=== PATIENT | female | born 1945 | race Caucasian/White ===

== ENCOUNTER → 2016-08-17 | Outpatient (CLI) | payer MEDICARE ==
[~2016-08-17] MED LIST: CARV12.52 PO; CHOL1TAB16 PO; GLIM1TAB PO; GLIM2TAB PO; LISI-357 PO; LISI-519 PO; METF-324 PO; METF500 PO; METF500T PO; MIRA0.25 PO; POTA595T PO; POTASSIUM PO; PRAM0.25 PO; PRAV10TA PO; VITATAB43 PO; XARE15TA PO; XARE20TA PO; [UNRECOGNIZED DRUG - CODE] PO
[2016-08-17 12:32] LABS: AUTOMATED NEUTROPHIL # 4.1 TH/MM3 (1.8-7.7); BASOPHIL # 0.1 TH/MM3 (0-0.2); BASOPHIL % 1.1 % (0.0-2.0); EOSINOPHIL # 0.1 TH/MM3 (0-0.4); EOSINOPHIL % 2.2 % (0.0-4.0); HEMATOCRIT 40.7 % (35.0-46.0); HEMO FLAGS DIFF FINAL; LYMPH % 30.7 % (9.0-44.0); LYMPHOCYTE # 2.1 TH/MM3 (1.0-4.8); MEAN CELL VOLUME 91.7 FL (80.0-100.0); MEAN CORPUSCULAR HGB CONC 33.7 % (32.0-36.0); MONO % 6.4 % (0.0-8.0); NEUT % 59.6 % (16.0-70.0); PLATELET COUNT 164 TH/MM3 (150-450); RED BLOOD COUNT 4.43 MIL/MM3 (4.00-5.30); RED CELL DISTRIBUTION WIDTH 13.1 % (11.6-17.2); WHITE BLOOD COUNT 6.8 TH/MM3 (4.0-11.0)
[2016-08-17 12:57] LABS: ANION GAP 9 MEQ/L (5-15); BICARBONATE 26.2 MEQ/L (21.0-32.0); BLOOD UREA NITROGEN 11 MG/DL (7-18); CHLORIDE 105 MEQ/L (98-107); GLOMERULAR FILTRATION RATE 96 ML/MIN (>89); GLUCOSE,FASTING 151 MG/DL (74-99); POTASSIUM 3.7 MEQ/L (3.5-5.1); SODIUM (NA) 140 MEQ/L (136-145)
[2016-08-17 14:12] LABS: ALKALINE PHOSPHATASE 89 U/L (45-117); ALT (GPT) 20 U/L (10-53); AST (GOT) 9 U/L (15-37); FREE T4 1.01 NG/DL (0.76-1.46); HDL CHOLESTEROL 60.9 MG/DL (40.0-60.0); LDL CHOLESTEROL 110 MG/DL (0-99); TOTAL BILIRUBIN ADULT 0.7 MG/DL (0.2-1.0)
== END ==
LOC: CLAB 12:05
PROVIDERS: ATTEND Family Medicine
DX: I10 Essential (primary) hypertension (principal); E11.65 Type 2 diabetes mellitus with hyperglycemia; R25.1 Tremor, unspecified; R41.3 Other amnesia; E55.9 Vitamin D deficiency, unspecified; R26.89 Other abnormalities of gait and mobility; F43.21 Adjustment disorder with depressed mood
CPT/HCPCS: 36415; 80053; 80061; 82306; 82607; 84439; 84443; 85025

== ENCOUNTER → 2016-11-03 | Outpatient (CLI) | payer MEDICARE ==
[2016-11-03 10:35] LABS: HEMATOCRIT 41.4 % (35.0-46.0); MEAN CELL VOLUME 92.3 FL (80.0-100.0); MEAN CORPUSCULAR HEMOGLOBIN 30.3 PG (27.0-34.0); MEAN CORPUSCULAR HGB CONC 32.8 % (32.0-36.0); PLATELET COUNT 149 TH/MM3 (150-450); RED BLOOD COUNT 4.48 MIL/MM3 (4.00-5.30); RED CELL DISTRIBUTION WIDTH 13.5 % (11.6-17.2); REVIEW FLAG FINAL; WHITE BLOOD COUNT 5.7 TH/MM3 (4.0-11.0)
[2016-11-03 10:50] LABS: ALT (GPT) 21 U/L (10-53); ANION GAP 6 MEQ/L (5-15); AST (GOT) 13 U/L (15-37); BICARBONATE 27.3 MEQ/L (21.0-32.0); BLOOD UREA NITROGEN 11 MG/DL (7-18); CHLORIDE 107 MEQ/L (98-107); GLOMERULAR FILTRATION RATE 86 ML/MIN (>89); GLUCOSE,FASTING 190 MG/DL (74-99); POTASSIUM 4.4 MEQ/L (3.5-5.1); SODIUM (NA) 140 MEQ/L (136-145)
[2016-11-03 10:59] LABS: ALKALINE PHOSPHATASE 85 U/L (45-117); HDL CHOLESTEROL 53.8 MG/DL (40.0-60.0); LDL CHOLESTEROL 91 MG/DL (0-99); TOTAL BILIRUBIN ADULT 0.6 MG/DL (0.2-1.0)
== END ==
LOC: CLAB 10:14
PROVIDERS: ATTEND Internal Medicine Interventional Cardiology
DX: I11.9 Hypertensive heart disease without heart failure (principal); R07.89 Other chest pain; E11.9 Type 2 diabetes mellitus without complications; R06.02 Shortness of breath; R53.81 Other malaise; I50.9 Heart failure, unspecified; E78.00 Pure hypercholesterolemia, unspecified
CPT/HCPCS: 36415; 80053; 80061; 83880; 84443; 85027

== ENCOUNTER 2016-12-11 10:32 | Inpatient (IN) | payer MEDICARE, MEDICAID ==
[2016-12-11] VITALS (14 sets, daily range): BP systolic 104–132; BP diastolic 56–97; PULSE 67–100; RESP 16–20; TEMP 98.3–98.7; O2SAT 91–97
[~2016-12-11] VITALS: Ht 167.6 cm; Wt 82.8 kg
[~2016-12-11 10:32] MED LIST changes: -CHOL1TAB16 PO; -GLIM2TAB PO; -LISI-519 PO; -METF500T PO; -MIRA0.25 PO; -POTA595T PO; -POTASSIUM PO; -PRAM0.25 PO; -PRAV10TA PO; -VITATAB43 PO; -XARE15TA PO; -XARE20TA PO; -[UNRECOGNIZED DRUG - CODE] PO
[2016-12-11] MEDS ORDERED: PRAV10TA PO (10:59)
[2016-12-11] MEDS ORDERED: CHOL1TAB16 PO (10:59)
[2016-12-11] MEDS ORDERED: POTASSIUM PO (10:59)
[2016-12-11] MEDS ORDERED: METF500T PO ×2 (10:59)
[2016-12-11] MEDS ORDERED: LISI-519 PO (10:59)
[2016-12-11] MEDS ORDERED: GLIM2TAB PO (10:59)
[2016-12-11] MEDS ORDERED: CARV12.52 PO (10:59)
[2016-12-11] MEDS ORDERED: PRAM0.25 PO (10:59)
[2016-12-11] MEDS ORDERED: VITATAB43 PO (10:59)
[2016-12-11] MEDS ORDERED: [UNRECOGNIZED DRUG - CODE] PO (10:59)
[2016-12-11 11:01] LABS: BLOOD, URINE NEG (NEG); KETONE, URINE 15 mg/dL (NEG); NITRITE,URINE NEG (NEG)
[2016-12-11 11:02] LABS: GLUCOSE,URINE 1000 OR GREATER mg/dL (NEG); METHOD OF COLLECTION CLEAN CATCH; URINE COLOR YELLOW (YELLW/STRAW)
[2016-12-11 11:06] LABS: COMMENT (UR) CULT NOT INDICATED; CULTURE IF INDICATED CULT NOT INDICATED; SQUAMOUS EPITHELIAL CELL URINE 0-5 /hpf (0-5); TRANSITIONAL EPI CELLS, URINE 0-5 /hpf; WBC, URINE 0-2 /hpf (0-5)
[2016-12-11] MEDS ORDERED: SODIUM CHLOR 0.9% 1000 ML INJ 1,000 ML IV ONE (11:09)
[2016-12-11] MEDS ORDERED: SODIUM CHLORIDE 0.9% FLUSH 10 ML FLUSH IVF PRN (11:15)
[2016-12-11 11:25] LABS: AUTOMATED NEUTROPHIL # 5.9 TH/MM3 (1.8-7.7); BASOPHIL # 0.1 TH/MM3 (0-0.2); BASOPHIL % 1.5 % (0.0-2.0); EOSINOPHIL # 0.1 TH/MM3 (0-0.4); EOSINOPHIL % 1.1 % (0.0-4.0); HEMATOCRIT 37.9 % (35.0-46.0); HEMO FLAGS DIFF FINAL; LYMPH % 26.6 % (9.0-44.0); LYMPHOCYTE # 2.4 TH/MM3 (1.0-4.8); MEAN CORPUSCULAR HEMOGLOBIN 30.3 PG (27.0-34.0); MEAN CORPUSCULAR HGB CONC 33.6 % (32.0-36.0); NEUT % 65.8 % (16.0-70.0); PLATELET COUNT 193 TH/MM3 (150-450); RED BLOOD COUNT 4.22 MIL/MM3 (4.00-5.30); RED CELL DISTRIBUTION WIDTH 12.3 % (11.6-17.2); WHITE BLOOD COUNT 8.9 TH/MM3 (4.0-11.0)
[2016-12-11 11:33] LABS: CHLORIDE 103 MEQ/L (98-107); POTASSIUM 4.1 MEQ/L (3.5-5.1); SODIUM (NA) 142 MEQ/L (136-145)
[2016-12-11 11:36] LABS: ANION GAP 15 MEQ/L (5-15); BICARBONATE 24.3 MEQ/L (21.0-32.0); BLOOD UREA NITROGEN 20 MG/DL (7-18); MAGNESIUM 1.5 MG/DL (1.5-2.5)
[2016-12-11 11:39] LABS: ALT (GPT) 21 U/L (10-53); AST (GOT) 13 U/L (15-37)
[2016-12-11 11:40] LABS: GLOMERULAR FILTRATION RATE 66 ML/MIN (>89)
[2016-12-11 11:41] LABS: TOTAL BILIRUBIN ADULT 0.6 MG/DL (0.2-1.0)
[2016-12-11 11:42] LABS: ALKALINE PHOSPHATASE 93 U/L (45-117)
[2016-12-11 11:45] LABS: CREATINE KINASE 39 U/L (26-192)
[2016-12-11] MEDS ORDERED: ONDANSETRON HCL 4 MG/2 ML VIAL IVP ONE (11:45)
[2016-12-11] MEDS ORDERED: LIDOCAINE VISCOUS 2% SOLN 15 ML UDC PO ONE (11:45)
[2016-12-11] MEDS ORDERED: DICYCLOMINE HCL 20 MG/2 ML VIAL IM ONE (11:45)
[2016-12-11] MEDS ORDERED: ALUMINUM/MAGNESIUM/SIMETH 30 ML CUP PO ONE (11:45)
--- NOTE | 2016-12-11 11:55 | PD ---
HPI Chief Complaint: Abdominal Pain Time Seen by Provider: 11:00 Travel History International Travel<30 days: No Contact w/Intl Traveler<30days: No Traveled to known affect area: No History of Present Illness HPI 71-year-old female arrives to the ER with a few complaints. She has felt total body pain for about a year or so. She felt dizzy at [facility] today. She did not lose consciousness or fall. She has had nausea and vomiting according to the triage nurse records although she does not mention it to me. She also notes abdominal pain to the triage nurse however does not report same to me. She's had no fever. Appetite has been normal. No chest pain or shortness of breath reported. The dizziness sensation she described as right headedness in nature. PFSH Past Medical History Hx Anticoagulant Therapy: No Arthritis: Yes (RA) Asthma: No Autoimmune Disease: No Blood Disorders: No Anxiety: Yes Depression: Yes Heart Rhythm Problems: No Cancer: No Cardiovascular Problems: Yes High Cholesterol: No Chemotherapy: No Chest Pain: No Congestive Heart Failure: No COPD: No Cerebrovascular Accident: No Diabetes: Yes Patient Takes Glucophage: Yes Diminished Hearing: No Endocrine: Yes GERD: Yes Genitourinary: No Headaches: Yes (MIGRAINES) Hepatitis: No Hiatal Hernia: No Hypertension: Yes Immune Disorder: No Implanted Vascular Access Dvce: No Medical other: No Musculoskeletal: Yes (RA, OSTEO) Neurologic: Yes (PARKINSON'S) Parkinson's Disease: Yes Psychiatric: Yes Reproductive: No Respiratory: No Myocardial Infarction: No Pneumonia: Yes ( A CHILD) Radiation Therapy: No Sleep Apnea: Yes Thyroid Disease: No Tetanus Vaccination: Unknown ?: Not Menopausal: Yes : 7 Para: 5 Miscarriage: 2 Tubal Ligation: Yes (25 YRS AGO) Past Surgical History Abdominal Surgery: No AICD: No Body Medical Devices: N/A Cardiac Surgery: No Ear Surgery: No Endocrine Surgery: No Eye Surgery: No Genitourinary Surgery: No Gynecologic Surgery: Yes (TUBAL LIGATION) Hysterectomy: No Joint Replacement: No Neurologic Surgery: No Oral Surgery: No Pacemaker: No Tonsillectomy: Yes ( CHILD) Other Surgery: Yes (BREAST REDUCTION 2003) Social History Alcohol Use: No Tobacco Use: No Substance Use: No Allergies-Medications (Allergen,Severity, Reaction): Coded Allergies: Penicillin (Verified Allergy, Intermediate, RASH, 12/11/16) Reported Meds & Prescriptions Reported Meds & Active Scripts Active Reported [Potassium] 595 Mg PO DAILY Vitamin [id number] Acid (Cobalamine Combinations) 500-400 Mcg Tab 1 Tab PO DAILY Vitamin D3 (Cholecalciferol) 50,000 Unit Tab 10,000 Units PO DAILY NEB Etodolac 300 Mg Cap 300 Mg PO TID Takr with food. Pravastatin 10 Mg Tab 10 Mg PO DAILY Carvedilol 12.5 Mg Tab 12.5 Mg PO BID Lisinopril 5 Mg Tab 5 Mg PO DAILY Glimepiride 2 Mg Tab 2 Mg PO BIDAC Metformin (Metformin HCl) 500 Mg Tab 1,500 Mg PO HS With meals Metformin (Metformin HCl) 500 Mg Tab 1,000 Mg PO AM With meals Pramipexole (Pramipexole Dihydrochloride) 0.25 Mg Tab 0.25 Mg PO TID Review of Systems Except as stated in HPI: all other systems reviewed are Neg General / Constitutional: No: Fever, Chills Physical Exam Narrative GENERAL: 71-year-old female pleasant well-nourished well-developed SKIN: Focused skin assessment warm/dry. HEAD: Atraumatic. Normocephalic. EYES: Pupils equal and round. No scleral icterus. No injection or drainage. ENT: No nasal bleeding or discharge. Mucous membranes pink and moist. NECK: Trachea midline. No JVD. CARDIOVASCULAR: Regular rate and rhythm. No murmur appreciated. RESPIRATORY: No accessory muscle use. Clear to auscultation. Breath sounds equal bilaterally. GASTROINTESTINAL: Soft. Minimal suprapubic tenderness. MUSCULOSKELETAL: No obvious deformities. No clubbing. No cyanosis. No evidence DVT. NEUROLOGICAL: Awake and alert. No obvious cranial nerve deficits. Motor grossly within normal limits. Normal speech. PSYCHIATRIC: Appropriate mood and affect; insight and judgment normal. Data Data Last Documented VS Vital Signs Date Time Temp Pulse Resp B/P Pulse Ox O2 Delivery O2 Flow Rate FiO2 12/11/16 12:57 83 16 130/59 96 Room Air 12/11/16 10:35 98.7 VS reviewed Orders Urinalysis - C+S If Indicated (12/11/16 10:36) Electrocardiogram (12/11/16 11:09) Complete Blood Count With Diff (12/11/16 11:09) Comprehensive Metabolic Panel (12/11/16 11:09) Magnesium (Mg) (12/11/16 11:09) Ckmb (Isoenzyme) Profile (12/11/16 11:09) Troponin I (12/11/16 11:09) Ecg Monitoring (12/11/16 11:09) Iv Access Insert/Monitor (12/11/16 11:09) Oximetry (12/11/16 11:09) Sodium Chloride 0.9% Flush (Ns Flush) (12/11/16 11:15) Sodium Chlor 0.9% 1000 Ml Inj (Ns 1000 M (12/11/16 11:09) Orthostatic Vital Signs (12/11/16 11:09) Ondansetron Inj (Zofran Inj) (12/11/16 11:45) Dicyclomine Inj (Bentyl Inj) (12/11/16 11:45) Al-Mag Hy-Si 40-40-4 Mg/Ml Liq (Mag-Al P (12/11/16 11:45) Lidocaine 2% Viscous (Xylocaine 2% Visco (12/11/16 11:45) Ct Abd/Pel W Iv Contrast(Rout) (12/11/16 11:37) Lipase (12/11/16 11:10) Iohexol 350 Inj (Omnipaque 350 Inj) (12/11/16 12:09) Us Leg Venous Doppler Bilat (12/11/16 ) Carvedilol (Coreg) (12/11/16 21:00) Lisinopril (Prinivil) (12/12/16 09:00) Pramipexole (Mirapex) (12/11/16 18:00) Pravastatin (Pravachol) (12/12/16 09:00) Heparin Infusion LINSEY.Q1H (12/11/16 13:54) Heparin Inj (Heparin Inj) (12/11/16 20:00) Heparin Inj (Heparin Inj) (12/11/16 20:00) Heparin-D5w Inj (Heparin-D5w Inj) (12/11/16 14:00) Act Partial Throm Time (Ptt) (12/11/16 13:54) Prothrombin Time / Inr (Pt) (12/11/16 13:54) Admit Order (Ed Use Only) (12/11/16 13:55) Labs Laboratory Tests Test 12/11/16 12/11/16 10:45 11:10 Urine Collection Type CLEAN CATCH Urine Color YELLOW Urine Turbidity SLIGHT Urine pH 5.0 Urine Specific [place] 1.034 Urine Protein NEG mg/dL Urine Glucose (UA) 1000 OR GREATER mg/dL Urine Ketones 15 mg/dL Urine Occult Blood NEG Urine Nitrite NEG Urine Bilirubin NEG Urine Leukocyte Esterase NEG Urine WBC 0-2 /hpf Urine Squamous Epithelial 0-5 /hpf Cells Urine Transitional Epithelial 0-5 /hpf Cells Urine Amorphous Sediment FEW Microscopic Urinalysis Comment CULT NOT INDICATED Urine Collection Time 1045 White Blood Count 8.9 TH/MM3 Red Blood Count 4.22 MIL/MM3 Hemoglobin 12.8 GM/DL Hematocrit 37.9 % Mean Corpuscular Volume 90.0 FL Mean Corpuscular Hemoglobin 30.3 PG Mean Corpuscular Hemoglobin 33.6 % Concent Red Cell Distribution Width 12.3 % Platelet Count 193 TH/MM3 Mean Platelet Volume 10.8 FL Neutrophils (%) (Auto) 65.8 % Lymphocytes (%) (Auto) 26.6 % Monocytes (%) (Auto) 5.0 % Eosinophils (%) (Auto) 1.1 % Basophils (%) (Auto) 1.5 % Neutrophils # (Auto) 5.9 TH/MM3 Lymphocytes # (Auto) 2.4 TH/MM3 Monocytes # (Auto) 0.4 TH/MM3 Eosinophils # (Auto) 0.1 TH/MM3 Basophils # (Auto) 0.1 TH/MM3 CBC Comment DIFF FINAL Differential Comment Prothrombin Time 10.7 SEC Prothromb Time International 1.0 RATIO Ratio Activated Partial 23.6 SEC Thromboplast Time Sodium Level 142 MEQ/L Potassium Level 4.1 MEQ/L Chloride Level 103 MEQ/L Carbon Dioxide Level 24.3 MEQ/L Anion Gap 15 MEQ/L Blood Urea Nitrogen 20 MG/DL Creatinine 0.85 MG/DL Estimat Glomerular Filtration 66 ML/MIN Rate Random Glucose 277 MG/DL Calcium Level 9.5 MG/DL Magnesium Level 1.5 MG/DL Total Bilirubin 0.6 MG/DL Aspartate Amino Transf 13 U/L (AST/SGOT) Alanine Aminotransferase 21 U/L (ALT/SGPT) Alkaline Phosphatase 93 U/L Total Creatine Kinase 39 U/L Troponin I LESS THAN 0.02 NG/ML Total Protein 6.9 GM/DL Albumin 3.5 GM/DL Lipase 126 U/L MDM Medical Decision Making Medical Screen Exam Complete: Yes Emergency Medical Condition: Yes Medical Record Reviewed: Yes Differential Diagnosis Dehydration, PE, DVT, anemia, electrolyte imbalance, arrhythmia Narrative Course CBC & BMP Diagram 12/11/16 11:10 LFTs normal Tn < 0.02 Lipase 126 UA: No UTI EKG: Sinus, normal axis, intervals, rate 90 Last 24 hours Impressions Lung Scan-VQ Nuclear Medicine 12/11/16 1305 Signed Impressions: Service Date/Time: Sunday, December 11, 2016 16:28 - CONCLUSION: Normal examination. Sarwat Carter MD Abdomen/Pelvis CT 12/11/16 1137 Signed Impressions: Service Date/Time: Sunday, December 11, 2016 11:57 - CONCLUSION: 1. Elongated filling defect of the left common iliac artery indicating deep vein thrombosis. 2. Hepatic steatosis. 3. Renal cysts. Jair Garcia MD Lower Extremity Ultrasound 12/11/16 0000 Signed Impressions: Service Date/Time: Sunday, December 11, 2016 13:58 - CONCLUSION: No evidence of lower extremity DVT on the right or left. Jair Garcia MD Chest X-Ray 12/11/16 0000 Signed Impressions: Service Date/Time: Sunday, December 11, 2016 14:32 - CONCLUSION: Slight right mid lung linear atelectasis. Sarwat Carter MD Patient presumably has deep vein thrombosis based on CT imaging involving the left common iliac artery. Heparin started. Case discussed with Dr. Castro. Diagnosis Primary Impression: Dizziness Additional Impression: DVT (deep venous thrombosis) Qualified Code: I82.90 - Deep vein thrombosis (DVT) of non-extremity vein, unspecified chronicity Admitting Information Admitting Physician Requests: Observation Rufus Marie MD Dec 11, 2016 11:55
[2016-12-11] MEDS ORDERED: IOHEXOL 350 MG/ML 10 ML VIAL (for RAD DIAG) IV ONE (12:09)
--- NOTE | 2016-12-11 13:06 | RADHPO ---
EXAM DATE/TIME: 12/11/2016 11:57 [facility] COMPARISON: No previous studies available for comparison. INDICATIONS : Upper abdominal pain. IV CONTRAST: 85 cc Omnipaque 350 (iohexol) IV ORAL CONTRAST: No oral contrast ingested. RADIATION DOSE: 19.29 CTDIvol (mGy) MEDICAL HISTORY : Hypertension. Gastroesophageal reflux disease. Diabetes SURGICAL HISTORY : Tubal ligation. ENCOUNTER: Initial ACUITY: 2 weeks PAIN SCALE: 5/10 LOCATION: Bilateral upper quadrant TECHNIQUE: Volumetric scanning of the abdomen and pelvis was performed. Using automated exposure control and ad justment of the mA and/or kV according to patient size, radiation dose was kept as low as reasonably achievable to obtain optimal diagnostic quality images. FINDINGS: LOWER LUNGS: The visualized lower lungs are clear. LIVER: Diffuse hypodensity of the liver indicating hepatic steatosis. No mass identified. Gallbladder within normal limits. SPLEEN: Normal size without lesion. PANCREAS: Within normal limits. KIDNEYS: 1.8 cm right midpole renal cyst. 1 cm left upper pole renal cyst. No evidence of hydronephrosis. ADRENAL GLANDS: Within normal limits. VASCULAR: Filling defect in the proximal left common iliac vein indicating deep vein thrombosis. There is no ao rtic aneurysm. BOWEL/MESENTERY: No evidence of bowel dilatation. No free air or free fluid. Appendix within normal limits. ABDOMINAL WALL: Within normal limits. RETROPERITONEUM: There is no lymphadenopathy. BLADDER: No wall thickening or mass. REPRODUCTIVE: Within normal limits. INGUINAL: There is no lymphadenopathy or hernia. MUSCULOSKELETAL: Within normal limits for patient age. CONCLUSION: 1. Elongated filling defect of the left common iliac artery indicating deep vein thrombosis. 2. Hepatic steatosis. 3. Renal cysts. Jair Garcia MD on December 11, 2016 at 12:54 Board Certified Radiologist. This report was verified electronically.
[2016-12-11] MEDS ORDERED: HEPARIN-D5W INJ 250 ML IV SCH (14:00)
[2016-12-11] MEDS ORDERED: SODIUM CHLOR 0.9% 1000 ML INJ 1,000 ML IV SCH (14:08)
[2016-12-11] MEDS ORDERED: NALOXONE HCL 0.4 MG/ML AMP IV PRN (14:15)
[2016-12-11] MEDS ORDERED: ACETAMINOPHEN 325 MG TAB PO PRN ×2 (14:15)
[2016-12-11] MEDS ORDERED: SENNOSIDES 8.6 MG TAB PO PRN (14:15)
[2016-12-11] MEDS: DOCUSATE SODIUM 100 MG CAP PO SCH (14:15)
[2016-12-11] MEDS ORDERED: SODIUM CHLORIDE 0.9% FLUSH 10 ML FLUSH IV FLUSH PRN (14:15)
--- NOTE | 2016-12-11 14:17 | HHI.HP ---
[facility] Service [facility] Primary Care Physician Jorge Hutchinson MD Admission Diagnosis Near Syncope, Poss DVT Diagnoses: Chief Complaint: Dizziness Travel History International Travel<30 Days: No Contact w/Intl Traveler <30 Da: No Traveled to Known Affected Are: No History of Present Illness The patient is a 71-year-old female who is diagnosed with Parkinson's disease last year who is presenting to the hospital with dizziness. The patient said she went to [facility] this morning and about 15 minutes in she developed lightheadedness and nausea. She denied chest pain or shortness of breath. She says she felt hot/flushed while this was happening. She says she never sweats. She endorsed a minor headache. She says she gets these sort of spells every once in a while. The patient also complains of chronic body pains. She believes a lot of her symptoms including her body pains and her lightheadedness are related to her medications. She says she has been having a hard time sleeping secondary to generalized pain. She says if she moves a little bit in bed she will get significant pain sometimes. She says she tries not to take her Parkinson's medications prior to leaving the house sometimes because she knows it can predispose her to lightheadedness. She did not take it this morning before going to [facility]. Review of Systems Except as stated in HPI: all other systems reviewed are Neg Past Family Social History Past Medical History Parkinson's disease Hypertension Diabetes mellitus type 2 Anxiety/depression Dyslipidemia Rheumatoid arthritis Basal cell carcinoma status post removal Past Surgical History Tubal ligation Breast reduction Tonsillectomy Allergies: Coded Allergies: Penicillin (Verified Allergy, Intermediate, RASH, 12/11/16) Active Ordered Medications Current Medications Medications (Trade) Dose Ordered Sig/Jennifer Route Start Time Stop Time Status Last Admin (NS Flush) 2 ml UNSCH PRN IVF 12/11/16 11:15 (Coreg) 12.5 mg BID PO 12/11/16 21:00 (Prinivil) 5 mg DAILY PO 12/12/16 09:00 (Mirapex) 0.25 mg TID PO 12/11/16 18:00 (Pravachol) 10 mg DAILY PO 12/12/16 09:00 (Heparin Inj) 5,000 units UNSCH PRN IV 12/11/16 20:00 Heparin Sodium (Porcine) 2500 units 2,500 units UNSCH PRN IV 12/11/16 20:00 Heparin Sodium/ Dextrose 250 ml @ 0 mls/hr TITRATE IV 12/11/16 14:00 (NS 1000 ml Inj) 1,000 ml @ 100 mls/hr Q10H IV 12/11/16 14:08 12/12/16 00:07 UNV (NS Flush) 2 ml UNSCH PRN IV FLUSH 12/11/16 14:15 UNV (NS Flush) 2 ml BID IV FLUSH 12/11/16 21:00 UNV (Tylenol) 650 mg Q4H PRN PO 12/11/16 14:15 UNV (Colace) 100 mg Q12H PO 12/11/16 14:15 UNV (Senokot) 17.2 mg Q12H PRN PO 12/11/16 14:15 UNV (Tylenol) 650 mg Q6H PRN PO 12/11/16 14:15 UNV (Roxicodone) 5 mg Q4H PRN PO 12/11/16 14:15 UNV (Narcan Inj) 0.4 mg UNSCH PRN IV 12/11/16 14:15 UNV Family History Diabetes Vaginal cancer Social History The patient does not smoke or drink. Physical Exam Vital Signs Vital Signs Date Time Temp Pulse Resp B/P Pulse Ox O2 Delivery O2 Flow Rate FiO2 12/11/16 12:57 83 16 130/59 96 Room Air 12/11/16 11:33 88 16 112/58 90 16 110/61 12/11/16 11:27 89 16 104/69 95 Room Air 12/11/16 11:20 16 97 Room Air 12/11/16 10:35 98.7 100 17 122/97 97 Physical Exam GENERAL: Well-nourished well-developed, NAD. SKIN: Focused skin assessment warm/dry. HEAD: Atraumatic. Normocephalic. EYES: Pupils equal and round. No scleral icterus. No injection or drainage. ENT: No nasal bleeding or discharge. Mucous membranes pink and moist. NECK: Trachea midline. No JVD. No carotid bruits noted. CARDIOVASCULAR: Regular rate and rhythm. No murmur appreciated. RESPIRATORY: No accessory muscle use. Clear to auscultation. Breath sounds equal bilaterally. GASTROINTESTINAL: + BS. Soft, nontender. No guarding or rebound. MUSCULOSKELETAL: No obvious deformities. No clubbing. No cyanosis. No edema. NEUROLOGICAL: Awake and alert. No obvious cranial nerve deficits. Motor grossly within normal limits. Normal speech. Extremities demonstrate rigidity. PSYCHIATRIC: Appropriate mood and affect; insight and judgment normal. Laboratory Laboratory Tests Test 12/11/16 12/11/16 10:45 11:10 Urine Collection Type CLEAN CATCH Urine Color YELLOW Urine Turbidity SLIGHT Urine pH 5.0 Urine Specific [place] 1.034 Urine Protein NEG Urine Glucose (UA) 1000 OR GREATER Urine Ketones 15 Urine Occult Blood NEG Urine Nitrite NEG Urine Bilirubin NEG Urine Leukocyte Esterase NEG Urine WBC 0-2 Urine Squamous Epithelial 0-5 Cells Urine Transitional Epithelial 0-5 Cells Urine Amorphous Sediment FEW Microscopic Urinalysis Comment CULT NOT INDICATED Urine Collection Time 1045 White Blood Count 8.9 Red Blood Count 4.22 Hemoglobin 12.8 Hematocrit 37.9 Mean Corpuscular Volume 90.0 Mean Corpuscular Hemoglobin 30.3 Mean Corpuscular Hemoglobin 33.6 Concent Red Cell Distribution Width 12.3 Platelet Count 193 Mean Platelet Volume 10.8 Neutrophils (%) (Auto) 65.8 Lymphocytes (%) (Auto) 26.6 Monocytes (%) (Auto) 5.0 Eosinophils (%) (Auto) 1.1 Basophils (%) (Auto) 1.5 Neutrophils # (Auto) 5.9 Lymphocytes # (Auto) 2.4 Monocytes # (Auto) 0.4 Eosinophils # (Auto) 0.1 Basophils # (Auto) 0.1 CBC Comment DIFF FINAL Differential Comment Sodium Level 142 Potassium Level 4.1 Chloride Level 103 Carbon Dioxide Level 24.3 Anion Gap 15 Blood Urea Nitrogen 20 Creatinine 0.85 Estimat Glomerular Filtration 66 Rate Random Glucose 277 Calcium Level 9.5 Magnesium Level 1.5 Total Bilirubin 0.6 Aspartate Amino Transf 13 (AST/SGOT) Alanine Aminotransferase 21 (ALT/SGPT) Alkaline Phosphatase 93 Total Creatine Kinase 39 Troponin I LESS THAN 0.02 Total Protein 6.9 Albumin 3.5 Lipase 126 Result Diagram: 12/11/16 1110 12/11/16 1110 Imaging Last Impressions Abdomen/Pelvis CT 4/30/17 1137 Signed Impressions: Service Date/Time: Sunday, December 11, 2016 11:57 - CONCLUSION: 1. Elongated filling defect of the left common iliac artery indicating deep vein thrombosis. 2. Hepatic steatosis. 3. Renal cysts. Jair Garcia MD Assessment and Plan Assessment and Plan Acute DVT CT of the abdomen showed: Elongated filling defect of the left common iliac artery indicating deep vein thrombosis. - Duplex US pending. - continue heparin gtt for now. Dizziness Likely s/t meds as the pt does endorse a temporal relationship to taking medications. Pt also with Parkinson's disease which leads to autonomic dysfunction. Not found to be orthostatic in the ED. - telemetry. - continue to monitor orthostatics. - resume pramipexole at a lower dose. - trend trops. - check a CXR. Parkinson's disease Diagnosed one year ago. Has rigidity and generally feels weak and tired. - continue home meds. - PT/ OT. - consider neurology consult. - decrease pramipexole as above. DM On metformin and glimepiride as an outpt. - hold home meds. - insulin sliding scale. - check a hemoglobin A1c. HTN Well controlled at this time. - follow orthostatics. - consider decreasing doses of home meds. PPx: Heparin gtt. Code Status Full. Discussed Condition With Dr. Marie, pt. Physician Certification 2 Midnight Certification Type: Admission for Inpatient Services Order for Inpatient Services The services are ordered in accordance with Medicare regulations or non- Medicare payer requirements, as applicable. In the case of services not specified as inpatient-only, they are appropriately provided as inpatient services in accordance with the 2-midnight benchmark. Estimated LOS (days): 2 days is the estimated time the patient will need to remain in the hospital, assuming treatment plan goals are met and no additional complications. Post-Hospital Plan: Home Rohith Castro DO Dec 11, 2016 14:17
[2016-12-11 14:18] LABS: APTT (PATIENT) 23.6 SEC (24.3-30.1); PROTHROMBIN TIME - PATIENT 10.7 SEC (9.8-11.6)
[2016-12-11] MEDS ORDERED: PILL SPLITTER OTHER PRN (15:00)
--- NOTE | 2016-12-11 15:03 | RADHPO ---
EXAM DATE/TIME: 12/11/2016 13:58 [facility] COMPARISON: No previous studies available for comparison. INDICATIONS : Bilateral leg swelling. Thrombosis seen on CT. MEDICAL HISTORY : Hypertension. Gastroesophageal reflux disease. Pneumonia. Sleep apnea. Dyspnea. Diabetes. Osteoarthr itis. IBS. Parkinson's. basal cell carcinoma. SURGICAL HISTORY : Tonsillectomy.Tubal ligation. Breast reduction. ENCOUNTER: Initial ACUITY: 1 day PAIN SCORE: 0/10 LOCATION: Bilateral legs. TECHNIQUE: Venous ultrasound of the left and right leg was performed from the inguinal ligament to the proximal calf. Real-time, color Doppler and spectral tracing, compression and augmentation techniques were us ed. FINDINGS: RIGHT LEG: There is normal compressibility of the deep venous system from the inguinal region to the proximal ca lf. No echogenic clot is seen in the lumen of the common femoral, femoral, popliteal, and posterior tibial veins. There is a normal response of the venous system to proximal and distal augmentation an d respiration. LEFT LEG: There is normal compressibility of the deep venous system from the inguinal region to the proximal ca lf. No echogenic clot is seen in the lumen of the common femoral, femoral, popliteal, and posterior tibial veins. There is a normal response of the venous system to proximal and distal augmentation an d respiration. CONCLUSION: No evidence of lower extremity DVT on the right or left. Jair Garcia MD on December 11, 2016 at 15:01 Board Certified Radiologist. This report was verified electronically.
--- NOTE | 2016-12-11 15:10 | RADHPO ---
EXAM DATE/TIME: 12/11/2016 14:32 [facility] COMPARISON: CHEST SINGLE AP, December 18, 2014, 11:18. INDICATIONS : Syncopal episode. Chest pain. MEDICAL HISTORY : Hypertension. SURGICAL HISTORY : None. ENCOUNTER: Initial ACUITY: 1 day PAIN SCORE: 1/10 LOCATION: Bilateral chest FINDINGS: The lungs are clear without infiltrate, nodule, or mass except for slight linear atelectasis in the r ight midlung. There is no appreciable pleural effusion for technique. Heart and mediastinum are unr emarkable. CONCLUSION: Slight right mid lung linear atelectasis. Sarwat Carter MD on December 11, 2016 at 15:07 Board Certified Radiologist. This report was verified electronically.
[2016-12-11] MEDS: PRAMIPEXOLE DIHYDROCHLORIDE 0.25 MG TAB PO SCH ×2 (15:38→18:32)
[2016-12-11] MEDS: INSULIN ASPART SUPPLEMENTAL SCALE SQ SCH ×2 (16:00→20:19)
[2016-12-11] MEDS ORDERED: METFORMIN HOLD POST IV CONTRAST SCH (16:00)
--- NOTE | 2016-12-11 17:22 | RADHPO ---
EXAM DATE/TIME: 12/11/2016 16:28 [facility] COMPARISON: CHEST SINGLE AP, December 11, 2016, 14:32. INDICATIONS : Shortness of breath for 1 day. DOSE: 8.1 mCi Tc99m MAA IV 1.6 mCi Tc99m DTPA aerosol MEDICAL HISTORY : Hypertension. Parkinsons. SURGICAL HISTORY : Tubal ligation. Breast reduction. ENCOUNTER: Initial ACUITY: 1 day PAIN SCALE: 0/10 LOCATION: Bilateral chest TECHNIQUE: Following five minutes of tidal breathing of DTPA aerosol, planar images of the lungs were performed in eight projections. The patient was then injected with MAA, and eight-view perfusion scan was perf ormed. FINDINGS: There is a homogeneous pattern of aerosol delivery to the periphery of both lungs. No focal ventilat ory defects are seen. The perfusion lung scan demonstrates a homogenous pattern of uptake in both lungs. No segmental or s ubsegmental defects are seen. CONCLUSION: Normal examination. Sarwat Carter MD on December 11, 2016 at 17:20 Board Certified Radiologist. This report was verified electronically.
[2016-12-11] MEDS ORDERED: PRAMIPEXOLE DIHYDROCHLORIDE 0.25 MG TAB PO SCH (18:00)
[2016-12-11] MEDS ORDERED: HEPARIN SODIUM - IV 10,000 UNITS/10 ML VIAL IV PRN ×2 (20:00)
[2016-12-11] MEDS: SODIUM CHLORIDE 0.9% FLUSH 10 ML FLUSH IV FLUSH SCH (20:10)
[2016-12-11] MEDS: CARVEDILOL 12.5 MG TAB PO SCH (20:10)
[2016-12-12] VITALS (18 sets, daily range): BP systolic 99–151; BP diastolic 48–97; PULSE 67–86; RESP 12–30; TEMP 97.9–98.4; O2SAT 96
[2016-12-12] MEDS: DOCUSATE SODIUM 100 MG CAP PO SCH ×2 (02:00→16:19)
[2016-12-12] MEDS: INSULIN ASPART SUPPLEMENTAL SCALE SQ SCH ×4 (06:51→21:05)
[2016-12-12] MEDS: PRAVASTATIN SOD 10 MG TAB PO SCH (08:57)
[2016-12-12] MEDS: SODIUM CHLORIDE 0.9% FLUSH 10 ML FLUSH IV FLUSH SCH ×2 (08:57→21:04)
[2016-12-12] MEDS: CARVEDILOL 12.5 MG TAB PO SCH ×3 (08:58→21:04)
[2016-12-12] MEDS: LISINOPRIL 5 MG TAB PO SCH ×2 (08:58→12:52)
[2016-12-12] MEDS: PRAMIPEXOLE DIHYDROCHLORIDE 0.25 MG TAB PO SCH ×3 (08:59→18:32)
[2016-12-12 11:09] LABS: HEMOGLOBIN A1a 1.3 %; HEMOGLOBIN A1b 2.5 %; HEMOGLOBIN Ao 80.2 %; HEMOGLOBIN LA1C 2.6 %; HEMOGLOBIN P3 4.5 %
[2016-12-12] MEDS: ENOXAPARIN SODIUM 80 MG/0.8 ML SYRINGE SQ SCH ×2 (12:50→21:05)
[2016-12-12] MEDS: SODIUM CHLOR 0.45% 1000 ML INJ 1,000 ML IV SCH ×2 (12:53→22:10)
--- NOTE | 2016-12-12 12:56 | HHI.PR ---
Subjective Remarks The patient was feeling well and wanted to go home. She questions about her blood clot. She said that she would be willing to try her pramipexole at a lower dose. She has not had any further episodes of dizziness. Objective Vitals Vital Signs Date Time Temp Pulse Resp B/P Pulse Ox O2 Delivery O2 Flow Rate FiO2 12/12/16 12:00 98.4 86 30 149/78 12/12/16 12:00 86 12/12/16 08:03 70 12/12/16 08:03 70 24 103/59 12/12/16 08:02 72 12/12/16 08:02 72 25 114/54 12/12/16 08:00 70 12/12/16 08:00 98.0 70 26 109/59 12/12/16 06:00 68 12/12/16 04:15 98.1 69 14 99/48 12/12/16 04:00 69 12/12/16 04:00 68 12 12/12/16 03:00 67 12/12/16 02:00 68 12/12/16 01:00 67 12/12/16 00:00 98.2 68 20 114/56 96 12/12/16 00:00 68 12/11/16 23:00 67 12/11/16 22:00 76 12/11/16 21:00 77 12/11/16 20:00 98.3 81 20 126/56 91 12/11/16 20:00 83 12/11/16 19:00 81 12/11/16 18:00 72 12/11/16 16:00 78 12/11/16 16:00 98.5 78 18 132/71 95 12/11/16 15:30 80 12/11/16 14:53 83 16 125/65 95 Room Air 12/11/16 12:57 83 16 130/59 96 Room Air I/O 12/11/16 12/11/16 12/11/16 12/12/16 12/12/16 12/12/16 07:00 15:00 23:00 07:00 15:00 23:00 Intake Total 1000 ml 360 ml 200 ml Output Total 400 ml 300 ml Balance 1000 ml -40 ml -100 ml Intake Oral 360 ml 200 ml IV Total 1000 ml Output Urine Total 400 ml 300 ml # Voids 1 # Bowel Movements 0 Result Diagram: 12/11/16 1110 12/11/16 1110 Imaging Last Impressions Lung Scan-VQ Nuclear Medicine 12/11/16 1305 Signed Impressions: Service Date/Time: Sunday, December 11, 2016 16:28 - CONCLUSION: Normal examination. Sarwat Carter MD Abdomen/Pelvis CT 12/11/16 1137 Signed Impressions: Service Date/Time: Sunday, December 11, 2016 11:57 - CONCLUSION: 1. Elongated filling defect of the left common iliac artery indicating deep vein thrombosis. 2. Hepatic steatosis. 3. Renal cysts. Jair Garcia MD Lower Extremity Ultrasound 12/11/16 0000 Signed Impressions: Service Date/Time: Sunday, December 11, 2016 13:58 - CONCLUSION: No evidence of lower extremity DVT on the right or left. Jair Garcia MD Chest X-Ray 12/11/16 0000 Signed Impressions: Service Date/Time: Sunday, December 11, 2016 14:32 - CONCLUSION: Slight right mid lung linear atelectasis. Sarwat Carter MD Objective Remarks GENERAL: Well-nourished well-developed, NAD. SKIN: Focused skin assessment warm/dry. HEAD: Atraumatic. Normocephalic. EYES: Pupils equal and round. No scleral icterus. No injection or drainage. ENT: No nasal bleeding or discharge. Mucous membranes pink and moist. NECK: Trachea midline. No JVD. No carotid bruits noted. CARDIOVASCULAR: Regular rate and rhythm. No murmur appreciated. RESPIRATORY: No accessory muscle use. Clear to auscultation. Breath sounds equal bilaterally. GASTROINTESTINAL: + BS. Soft, nontender. No guarding or rebound. MUSCULOSKELETAL: No obvious deformities. No clubbing. No cyanosis. No edema. NEUROLOGICAL: Awake and alert. No obvious cranial nerve deficits. Motor grossly within normal limits. Normal speech. Extremities demonstrate mild rigidity. PSYCHIATRIC: Appropriate mood and affect; insight and judgment normal. Medications and IVs Current Medications Medications (Trade) Dose Ordered Sig/Jennifer Route Start Time Stop Time Status Last Admin (Coreg) 12.5 mg BID PO 12/11/16 21:00 12/11/16 20:10 (Prinivil) 5 mg DAILY PO 12/12/16 09:00 (Pravachol) 10 mg DAILY PO 12/12/16 09:00 12/12/16 08:57 (NS Flush) 2 ml UNSCH PRN IV FLUSH 12/11/16 14:15 (NS Flush) 2 ml BID IV FLUSH 12/11/16 21:00 12/12/16 08:57 (Tylenol) 650 mg Q4H PRN PO 12/11/16 14:15 12/12/16 11:25 (Colace) 100 mg Q12H PO 12/11/16 14:15 (Senokot) 17.2 mg Q12H PRN PO 12/11/16 14:15 (Tylenol) 650 mg Q6H PRN PO 12/11/16 14:15 (Roxicodone) 5 mg Q4H PRN PO 12/11/16 14:15 (Narcan Inj) 0.4 mg UNSCH PRN IV 12/11/16 14:15 (Mirapex) 0.125 mg TID PO 12/11/16 14:45 12/12/16 08:59 (Pill Splitter) 1 ea UNSCH PRN OTHER 12/11/16 15:00 Miscellaneous Information HOLD METFORMIN FOR... Q24H .XX 12/11/16 16:00 12/13/16 15:59 (08/15 NS 1000 ml Inj) 1,000 ml @ 100 mls/hr Q10H IV 12/12/16 12:45 12/13/16 08:44 (Lovenox Inj) 80 mg Q12HR SQ 12/12/16 12:45 A/P Assessment and Plan Acute DVT CT of the abdomen showed: Elongated filling defect of the left common iliac artery indicating deep vein thrombosis. Duplex US negative. V/Q scan negative. - continue therapeutic Lovenox for now. - discussed with radiologist airway traffic controller. Will obtain CTA venogram to further assess DVT. - If CTA positive pt would opt for Coumadin with a Lovenox bridge. Dizziness Likely s/t meds as the pt does endorse a temporal relationship to taking medications. Pt also with Parkinson's disease which leads to autonomic dysfunction. Not found to be orthostatic in the ED. CXR unremarkable. - telemetry. - continue to monitor orthostatics. - resume pramipexole at a lower dose. Parkinson's disease Diagnosed one year ago. Has rigidity and generally feels weak and tired. - continue home meds. - PT/ OT. - decrease pramipexole as above. DM On metformin and glimepiride as an outpt. - hold home meds. - insulin sliding scale. - check a hemoglobin A1c. HTN Well controlled at this time. - follow orthostatics. - consider decreasing doses of home meds. PPx: Lovenox. Discharge Planning Awaiting CTA. Rohith Castro DO December 12, 2016 12:56
[2016-12-12] MEDS ORDERED: IOHEXOL 350 MG/ML 10 ML VIAL (for RAD DIAG) IV ONE (15:06)
--- NOTE | 2016-12-12 15:18 | RADHPO ---
EXAM DATE/TIME: 12/12/2016 14:17 [facility] COMPARISON: CT ABDOMEN & PELVIS W CONTRAST, December 11, 2016, 11:57. INDICATIONS : Abnormal CT scan yesterday. Evaluate left iliac. IV CONTRAST: 95 cc Omnipaque 350 (iohexol) IV RADIATION DOSE: 25.23 CTDIvol (mGy) MEDICAL HISTORY : Hypertension. Gastroesophageal reflux disease. Diabetes. SURGICAL HISTORY : Tubal ligation. ENCOUNTER: Subsequent ACUITY: 2 days PAIN SCALE: 4/10 LOCATION: pelvis TECHNIQUE: Volumetric scanning of the pelvis was performed. Using automated exposure control and adjustment of the mA and/or kV according to patient size, radiation dose was kept as low as reasonably achievable t o obtain optimal diagnostic quality images. Arterial phase and venous phase imaging performed. FINDINGS: Arteries: Visualized portions of the infrarenal aorta and inflow vessels opacify normally with the contrast momo us. Internal iliac arteries are patent as is the visualized portions of the UMA. Veins: There is a filling defect identified within the peripheral aspects of the left common iliac vein exte nding into the left internal iliac vein. There is contrast surrounding the structure. This is consist ent with nonocclusive thrombus. There is a nonocclusive thrombus also seen involving the left ovarian vein. The remaining venous structures are normal. Other structures: The visualized visceral structures are unremarkable. CONCLUSION: Acute nonocclusive thrombus involving the left iliac vein as well as the left gonadal vein. Chato Quinones Jr., MD on December 12, 2016 at 15:10 Board Certified Radiologist. This report was verified electronically.
[2016-12-12] MEDS ORDERED: POTA595T PO (17:00)
[2016-12-12] MEDS ORDERED: WARFARIN SOD 5 MG TAB PO SCH (18:45)
[2016-12-12 21:18] LABS: PROTHROMBIN TIME - PATIENT 10.8 SEC (9.8-11.6)
--- NOTE | 2016-12-12 23:10 | EKG ---
Date Performed: 12/11/2016 Time Performed: 11:16:58 PTAGE: 71 years EKG: Sinus rhythm Poor R wave progression - probable normal variant Anterior T wave changes are nonspecific Low QRS vo ltages in precordial leads Borderline ECG PREVIOUS TRACING : 08/11/2015 07.38 Compared to prior tracing no significant change DOCTOR: Jd Ziegler Interpretating Date/Time 12/12/2016 23:09:07
[2016-12-13] VITALS (15 sets, daily range): BP systolic 85–132; BP diastolic 44–69; PULSE 66–82; RESP 14–31; TEMP 98–98.5
[2016-12-13] MEDS: DOCUSATE SODIUM 100 MG CAP PO SCH ×2 (02:15→13:34)
[2016-12-13] MEDS: INSULIN ASPART SUPPLEMENTAL SCALE SQ SCH ×2 (07:10→11:00)
[2016-12-13] MEDS: SODIUM CHLORIDE 0.9% FLUSH 10 ML FLUSH IV FLUSH SCH (09:00)
[2016-12-13] MEDS: CARVEDILOL 12.5 MG TAB PO SCH (09:09)
[2016-12-13] MEDS: PRAVASTATIN SOD 10 MG TAB PO SCH (09:09)
[2016-12-13] MEDS: PRAMIPEXOLE DIHYDROCHLORIDE 0.25 MG TAB PO SCH ×2 (09:09→12:54)
[2016-12-13] MEDS: LISINOPRIL 5 MG TAB PO SCH (09:09)
[2016-12-13] MEDS: ENOXAPARIN SODIUM 80 MG/0.8 ML SYRINGE SQ SCH (09:09)
[2016-12-13 11:54] LABS: PROTHROMBIN TIME - PATIENT 11.2 SEC (9.8-11.6)
[2016-12-13] MEDS ORDERED: XARE15TA PO (13:30)
[2016-12-13] MEDS ORDERED: XARE20TA PO (13:30)
[2016-12-13] MEDS ORDERED: ONDANSETRON HCL 4 MG/2 ML VIAL IV PUSH PRN (13:30)
[2016-12-13] MEDS ORDERED: MIRA0.25 PO (13:30)
--- NOTE | 2016-12-13 13:34 | HHI.DCPOC ---
Discharge Care Plan Diagnosis: (1) DVT (deep venous thrombosis) (2) Dizziness (3) Diabetes mellitus Goals to Promote Your Health * To prevent worsening of your condition and complications * To maintain your health at the optimal level Directions to Meet Your Goals Take your medications as prescribed Follow your dietary instruction Follow activity as directed Keep your appointments as scheduled Take your immunizations and boosters as scheduled If your symptoms worsen call your PCP, if no PCP go to Urgent Care Center or Emergency Room Smoking is Dangerous to Your Health. Avoid second hand smoke Call the 24-hour hour crisis hotline for domestic abuse at Rohith Castro DO December 13, 2016 13:34
--- NOTE | 2016-12-13 13:38 | HHI.FF ---
Face to Face Verification Diagnosis: (1) DVT (deep venous thrombosis) (2) Diabetes mellitus (3) Dizziness Physical Therapy Order: Evaluate and Treat, Improve ambulation, Strength and gait training Home Health Nursing Order: Medical education Signs/symptoms of disease process Diabetic education Medication education-adverse effect Nursing assessment with vital signs I have seen patient Rebecca Rodriguez on 12/13/16. My clinical findings support the need for the requested home health care services because: Ltd mobility - disease progression Deconditioned w/ increased weakness Limited ability to care for self I certify that my clinical findings support that this patient is homebound because: Unsteady gait/balance Unsafe to leave home unassisted Rohith Castro DO December 13, 2016 13:37
--- NOTE | 2016-12-13 16:08 | HHI.DS ---
cc: Jorge Hutchinson MD Discharge Summary Admission Date December 12, 2016 at 12:57 Discharge Date: December 13, 2016 Admitting Diagnosis Near Syncope, Poss DVT (1) DVT (deep venous thrombosis) ICD Code: I82.409 Diagnosis: Principal (2) Diabetes mellitus ICD Code: E11.9 (3) Dizziness ICD Code: R42 Diagnosis: Principal Procedures None. Brief History - From Admission The patient is a 71-year-old female who is diagnosed with Parkinson's disease last year who is presenting to the hospital with dizziness. The patient said she went to [facility] this morning and about 15 minutes in she developed lightheadedness and nausea. She denied chest pain or shortness of breath. She says she felt hot/flushed while this was happening. She says she never sweats. She endorsed a minor headache. She says she gets these sort of spells every once in a while. The patient also complains of chronic body pains. She believes a lot of her symptoms including her body pains and her lightheadedness are related to her medications. She says she has been having a hard time sleeping secondary to generalized pain. She says if she moves a little bit in bed she will get significant pain sometimes. She says she tries not to take her Parkinson's medications prior to leaving the house sometimes because she knows it can predispose her to lightheadedness. She did not take it this morning before going to [facility]. CBC/BMP: 12/11/16 1110 12/11/16 1110 Significant Findings Laboratory Tests Test 12/11/16 12/11/16 12/11/16 12/11/16 10:45 11:10 17:33 23:18 Urine Glucose (UA) 1000 OR GREATER mg/dL (NEG) Urine Ketones 15 mg/dL (NEG) Activated Partial 23.6 SEC Thromboplast Time (24.3-30.1) Blood Urea Nitrogen 20 MG/DL (7-18) Estimat Glomerular Filtration 66 ML/MIN (>89) Rate Random Glucose 277 MG/DL (74-106) Aspartate Amino Transf 13 U/L (15-37) (AST/SGOT) Troponin I LESS THAN 0.02 LESS THAN 0.02 LESS THAN 0.02 NG/ML NG/ML NG/ML (0.02-0.05) (0.02-0.05) (0.02-0.05) Hemoglobin A1c 8.6 % (4.3-6.0) Imaging Last Impressions Pelvis CTA 12/12/16 0000 Signed Impressions: Service Date/Time: Monday, December 12, 2016 14:17 - CONCLUSION: Acute nonocclusive thrombus involving the left iliac vein as well as the left gonadal vein. Chato Quinones Jr., MD Lung Scan-V Nuclear Medicine 12/11/16 1305 Signed Impressions: Service Date/Time: Sunday, December 11, 2016 16:28 - CONCLUSION: Normal examination. Sarwat Carter MD Abdomen/Pelvis CT 12/11/16 1137 Signed Impressions: Service Date/Time: Sunday, December 11, 2016 11:57 - CONCLUSION: 1. Elongated filling defect of the left common iliac artery indicating deep vein thrombosis. 2. Hepatic steatosis. 3. Renal cysts. Jair Garcia MD Lower Extremity Ultrasound 12/11/16 0000 Signed Impressions: Service Date/Time: Sunday, December 11, 2016 13:58 - CONCLUSION: No evidence of lower extremity DVT on the right or left. Jair Garcia MD Chest X-Ray 12/11/16 0000 Signed Impressions: Service Date/Time: Sunday, December 11, 2016 14:32 - CONCLUSION: Slight right mid lung linear atelectasis. Sarwat Carter MD PE at Discharge GENERAL: Well-nourished well-developed, NAD. SKIN: Focused skin assessment warm/dry. HEAD: Atraumatic. Normocephalic. EYES: Pupils equal and round. No scleral icterus. No injection or drainage. ENT: No nasal bleeding or discharge. Mucous membranes pink and moist. NECK: Trachea midline. No JVD. No carotid bruits noted. CARDIOVASCULAR: Regular rate and rhythm. No murmur appreciated. RESPIRATORY: No accessory muscle use. Clear to auscultation. Breath sounds equal bilaterally. GASTROINTESTINAL: + BS. Soft, nontender. No guarding or rebound. MUSCULOSKELETAL: No obvious deformities. No clubbing. No cyanosis. No edema. NEUROLOGICAL: Awake and alert. No obvious cranial nerve deficits. Motor grossly within normal limits. Normal speech. Extremities demonstrate mild rigidity. PSYCHIATRIC: Appropriate mood and affect; insight and judgment normal. Hospital Course Acute DVT CT of the abdomen showed: Elongated filling defect of the left common iliac artery indicating deep vein thrombosis. Duplex US negative. V/Q scan negative. She was started on therapeutic Lovenox and Coumadin. CTA venogram showed: Acute nonocclusive thrombus involving the left iliac vein as well as the left gonadal vein. Discussed further with patient regarding anticoagulation and she stated that she would be in favor of being discharged on Xarelto. The risks and benefits were discussed at length. The pt will follow up with her PCP and hematology upon discharge. Dizziness The pt endorsed a temporal relationship to taking her medications. Not found to be orthostatic in the ED. CXR unremarkable. She was monitored on telemetry. We resumed her pramipexole at a lower dose. Her symptoms improved. She will follow up with her neurologist. Parkinson's disease Diagnosed one year ago. Has rigidity and generally feels weak and tired. She was continued on her home meds. Pramipexole dose was halved. She worked with PT / OT. She will be discharged with home health care. She will follow up with her neurologist. DM On metformin and glimepiride as an outpt. A1c was 8.6%. We held her home meds and covered with am insulin sliding scale. Pt Condition on Discharge: Stable Discharge Disposition: Disch w/ Home Health Serv Discharge Time: > 30 minutes Discharge Instructions DIET: Follow Instructions for: Diabetic Diet Activities you can perform: Weight Bearing as Mika Follow up Referrals: Neurology - 1 Week Oncology - [address] Vogt PCP Follow-up - 1 Week SNF/[facility]/ with [facility] New Medications: Rivaroxaban (Xarelto) 15 Mg Tab 15 MG PO Q12HR Take first dose at 7PM 12/13/16. Blood Clot Prevention #42 Ref 0 TAB Rivaroxaban (Xarelto) 20 Mg Tab 20 MG PO DAILY Start taking once finished with prescription for 15 mg twice daily. Blood Clot Prevention #30 Ref 0 TAB Pramipexole (Mirapex) 0.25 Mg Tab 0.125 MG PO TID Parkinson's #90 TAB Continued Medications: Carvedilol (Carvedilol) 12.5 Mg Tab 12.5 MG PO BID #60 Ref 0 TAB Cholecalciferol (Vitamin D3) 50,000 Unit Tab 06634 UNITS PO DAILY NEB Nutritional Supplement #1 Ref 0 BOTTLE Cobalamine Combinations (Vitamin L85-Abhgk Acid) 500-400 Mcg Tab 1 TAB PO DAILY Nutritional Supplement Ref 0 TAB Etodolac (Etodolac) 300 Mg Cap 300 MG PO TID Takr with food. Pain Management Ref 0 CAP Glimepiride (Glimepiride) 2 Mg Tab 2 MG PO BIDAC Blood Sugar Management #60 Ref 0 TAB Lisinopril (Lisinopril) 5 Mg Tab 5 MG PO DAILY Blood Pressure Management #30 Ref 0 TAB Metformin (Metformin) 500 Mg Tab 1000 MG PO AM With meals Blood Sugar Management #60 Ref 0 TAB Metformin (Metformin) 500 Mg Tab 1500 MG PO HS With meals Blood Sugar Management #60 Ref 0 TAB Potassium Gluconate (Potassium Gluconate) 595 Mg Tab 595 MG PO DAILY Pravastatin (Pravastatin) 10 Mg Tab 10 MG PO DAILY Cholesterol Management #30 Ref 0 TAB Discontinued Medications: Pramipexole (Pramipexole) 0.25 Mg Tab 0.25 MG PO TID Parkinson Disease Mgmt #90 Ref 0 TAB Additional Information Discharge time greater than 30 minutes. Rohith Castro DO December 13, 2016 16:08
--- NOTE | 2016-12-14 08:54 | EKG ---
Date Performed: 12/13/2016 Time Performed: 15:06:00 PTAGE: 71 years EKG: Sinus rhythm . Normal ECG PREVIOUS TRACING : 12/11/2016 11.16 DOCTOR: Guy Deitrich Interpretating Date/Time 12/14/2016 08:52:54
== END 2016-12-13 19:00 | disposition home health service (06) | DRG 301 ==
LOC: PHED 10:32 → INTOOBSV 13:57 → PHEDA 13:57 → PHICU 15:15 → OBSVTOIN 12-12 12:57
PROVIDERS: ADMIT Hospitalist; ATTEND Hospitalist
DX: I82.422 Acute embolism and thrombosis of left iliac vein (principal); G20 Parkinson's disease; E11.9 Type 2 diabetes mellitus without complications; M06.9 Rheumatoid arthritis, unspecified; I10 Essential (primary) hypertension; F32.9 Major depressive disorder, single episode, unspecified; F41.9 Anxiety disorder, unspecified; K21.9 Gastro-esophageal reflux disease without esophagitis; G43.909 Migraine, unspecified, not intractable, without status migrainosus; E78.5 Hyperlipidemia, unspecified; R42 Dizziness and giddiness; Z79.84 Long term (current) use of oral hypoglycemic drugs
CPT/HCPCS: 71010; 72191; 74177; 78582; 80053; 81001; 82550; 82948; 83036; 83690; 83735; 84484; 85025; 85610; 85730; 87641; 93005; 93970; 96361; 96372; 96374; A9540; A9567; G0378; G8987-GO; G8987-GP; G8988-GO; G8988-GP; J0500; J1644; J1650; J1815; J2405; J7030; Q9967

== ENCOUNTER 2017-04-22 20:13 | Emergency (ER) | payer MEDICARE, MEDICAID ==
[~2017-04-22 20:13] MED LIST changes: +CHOL1TAB16 PO; -GLIM1TAB PO; +GLIM2TAB PO; -LISI-357 PO; +LISI-519 PO; -METF-324 PO; -METF500 PO; +METF500T PO; +MIRA0.25 PO; +POTA595T PO; +PRAV10TA PO; +VITATAB43 PO; +XARE15TA PO; +XARE20TA PO; +[UNRECOGNIZED DRUG - CODE] PO
[2017-04-22 20:21] VITALS: BP 184/102; PULSE 81; RESP 20; TEMP 98.2; O2SAT 96
[2017-04-22] MEDS ORDERED: SODIUM CHLORIDE 0.9% FLUSH 10 ML FLUSH IV FLUSH PRN (20:45)
--- NOTE | 2017-04-22 20:50 | PD ---
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 The patient describes a pressure and occasional sharp sensation in her left lower abdomen. She reports that the pain feels similar to when she was diagnosed with a DVT in her iliac vein. Pain is moderate, intermittent, worse with movement and palpation. She denies fevers or chills. No nausea or vomiting. No diarrhea. No urinary symptoms. No history of abdominal surgeries. PFSH Past Medical History Hx Anticoagulant Therapy: No Arthritis: Yes (RA) Asthma: No Autoimmune Disease: No Blood Disorders: No Anxiety: Yes Depression: Yes Heart Rhythm Problems: No Cancer: No Cardiovascular Problems: Yes High Cholesterol: No Chemotherapy: No Chest Pain: No Congestive Heart Failure: No COPD: No Cerebrovascular Accident: No Diabetes: Yes Diminished Hearing: No Endocrine: Yes GERD: No Genitourinary: No Headaches: Yes (MIGRAINES) Hepatitis: No Hiatal Hernia: No Hypertension: Yes Immune Disorder: No Implanted Vascular Access Dvce: No Kidney Stones: Yes Musculoskeletal: Yes (RA, OSTEO) Neurologic: Yes (PARKINSON'S) Parkinson's Disease: Yes Psychiatric: Yes Reproductive: Yes (PROLAPSED UTERUS) Respiratory: No Migraines: Yes (HX OF MIGRAINES) Myocardial Infarction: No Pneumonia: Yes ( A CHILD) Radiation Therapy: No Seizures: No Sleep Apnea: Yes Thyroid Disease: No Ulcer: No Menopausal: Yes : 7 Para: 5 Miscarriage: 2 Tubal Ligation: Yes (25 YRS AGO) Past Surgical History Abdominal Surgery: No AICD: No Body Medical Devices: N/A Cardiac Surgery: No Ear Surgery: No Endocrine Surgery: No Eye Surgery: No Genitourinary Surgery: No Gynecologic Surgery: Yes (TUBAL LIGATION) Hysterectomy: No Joint Replacement: No Neurologic Surgery: No Oral Surgery: No Pacemaker: No Tonsillectomy: Yes ( CHILD) Other Surgery: Yes (BREAST REDUCTION 2003) Social History Alcohol Use: No Tobacco Use: No Substance Use: No Allergies-Medications (Allergen,Severity, Reaction): Coded Allergies: penicillin G (Unverified Allergy, Intermediate, RASH, 04/22/17) Reported Meds & Prescriptions Reported Meds & Active Scripts Active Mirapex (Pramipexole Dihydrochloride) 0.25 Mg Tab 0.125 Mg PO TID Xarelto (Rivaroxaban) 20 Mg Tab 20 Mg PO DAILY Start taking once finished with prescription for 15 mg twice daily. Xarelto (Rivaroxaban) 15 Mg Tab 15 Mg PO Q12HR Take first dose at 7PM 12/13/16. Reported Potassium Gluconate 595 Mg Tab 595 Mg PO DAILY Vitamin H80-Haaxu Acid (Cobalamine Combinations) 500-400 Mcg Tab 1 Tab PO DAILY Vitamin D3 (Cholecalciferol) 50,000 Unit Tab 10,000 Units PO DAILY NEB Etodolac 300 Mg Cap 300 Mg PO TID Takr with food. Pravastatin 10 Mg Tab 10 Mg PO DAILY Carvedilol 12.5 Mg Tab 12.5 Mg PO BID Lisinopril 5 Mg Tab 5 Mg PO DAILY Glimepiride 2 Mg Tab 2 Mg PO BIDAC Metformin (Metformin HCl) 500 Mg Tab 1,500 Mg PO HS With meals Metformin (Metformin HCl) 500 Mg Tab 1,000 Mg PO AM With meals Review of Systems Except as stated in HPI: all other systems reviewed are Neg Physical Exam Narrative GENERAL: Well-developed, well-nourished, comfortable, no apparent distress. SKIN: Focused skin assessment warm/dry. No rash. HEAD: Atraumatic. Normocephalic. EYES: Pupils equal and round. No scleral icterus. No injection or drainage. ENT: Mucous membranes pink and moist. NECK: Trachea midline. No JVD. CARDIOVASCULAR: Regular rate and rhythm. Distal pulses brisk and equal bilaterally. RESPIRATORY: No accessory muscle use. Clear to auscultation. Breath sounds equal bilaterally. GASTROINTESTINAL: Abdomen soft, nondistended. Moderate left lower quadrant tenderness without rebound or guarding. Rest of abdomen is soft and nontender. Normal bowel sounds. MUSCULOSKELETAL: No obvious deformities. No clubbing. No cyanosis. No edema. NEUROLOGICAL: Awake and alert. No obvious cranial nerve deficits. Motor grossly within normal limits. Normal speech. PSYCHIATRIC: Appropriate mood and affect; insight and judgment normal. Data Data Last Documented VS Vital Signs Date Time Temp Pulse Resp B/P (MAP) Pulse Ox O2 Delivery O2 Flow Rate FiO2 04/22/17 21:01 18 96 Room Air 04/22/17 20:21 98.2 81 184/102 (129) Orders Orders Complete Blood Count With Diff (04/22/17 20:36) Comprehensive Metabolic Panel (04/22/17 20:36) Lactic Acid (04/22/17 20:36) Prothrombin Time / Inr (Pt) (04/22/17 20:36) Act Partial Throm Time (Ptt) (04/22/17 20:36) Urinalysis - C+S If Indicated (04/22/17 20:36) Ct Abd/Pel W Iv Contrast(Rout) (04/22/17 20:36) Iv Access Insert/Monitor (04/22/17 20:36) Ecg Monitoring (04/22/17 20:36) Oximetry (04/22/17 20:36) Sodium Chloride 0.9% Flush (Ns Flush) (04/22/17 20:45) Urine Culture (04/22/17 20:56) Lactic Acid (04/22/17 21:55) Iohexol 350 Inj (Omnipaque 350 Inj) (04/22/17 22:00) Ns (Bolus) Inj (04/22/17 23:00) Ceftriaxone Inj (Rocephin Inj) (04/22/17 23:00) Labs Laboratory Tests Test 04/22/17 20:56 04/22/17 22:21 White Blood Count 6.3 TH/MM3 Red Blood Count 4.69 MIL/MM3 Hemoglobin 13.3 GM/DL Hematocrit 40.1 % Mean Corpuscular Volume 85.5 FL Mean Corpuscular Hemoglobin 28.3 PG Mean Corpuscular Hemoglobin Concent 33.0 % Red Cell Distribution Width 14.1 % Platelet Count 165 TH/MM3 Mean Platelet Volume 9.5 FL Neutrophils (%) (Auto) 48.5 % Lymphocytes (%) (Auto) 42.3 % Monocytes (%) (Auto) 6.1 % Eosinophils (%) (Auto) 2.1 % Basophils (%) (Auto) 1.0 % Neutrophils # (Auto) 3.0 TH/MM3 Lymphocytes # (Auto) 2.7 TH/MM3 Monocytes # (Auto) 0.4 TH/MM3 Eosinophils # (Auto) 0.1 TH/MM3 Basophils # (Auto) 0.1 TH/MM3 CBC Comment DIFF FINAL Differential Comment Prothrombin Time 10.7 SEC Prothromb Time International Ratio 1.0 RATIO Activated Partial Thromboplast Time 25.4 SEC Urine Color YELLOW Urine Turbidity CLEAR Urine pH 5.5 Urine Specific [place] 1.026 Urine Protein NEG mg/dL Urine Glucose (UA) 1000 OR GREATER mg/dL Urine Ketones 15 mg/dL Urine Occult Blood TRACE Urine Nitrite NEG Urine Bilirubin NEG Urine Leukocyte Esterase NEG Urine RBC 0-3 /hpf Urine WBC 3-5 /hpf Urine WBC Clumps FEW Urine Squamous Epithelial Cells 0-5 /hpf Microscopic Urinalysis Comment CULTURE INDICATED Blood Urea Nitrogen 16 MG/DL Creatinine 0.89 MG/DL Random Glucose 226 MG/DL Total Protein 7.4 GM/DL Albumin 3.6 GM/DL Calcium Level 9.8 MG/DL Alkaline Phosphatase 101 U/L Aspartate Amino Transf (AST/SGOT) 11 U/L Alanine Aminotransferase (ALT/SGPT) 18 U/L Total Bilirubin 0.5 MG/DL Sodium Level 136 MEQ/L Potassium Level 3.8 MEQ/L Chloride Level 102 MEQ/L Carbon Dioxide Level 24.9 MEQ/L Anion Gap 9 MEQ/L Estimat Glomerular Filtration Rate 62 ML/MIN Lactic Acid Level 4.0 mmol/L 3.4 mmol/L MDM Medical Decision Making Medical Screen Exam Complete: Yes Emergency Medical Condition: Yes Medical Record Reviewed: Yes Differential Diagnosis Colitis, diverticulitis, UTI, cystitis, DVT Narrative Course Vital signs show heart rate 81, blood pressure 184/102, pulse ox 96% on room air , oral temp of 98.2F. CBC is unremarkable. CMP is remarkable for random glucose 226, otherwise unremarkable. Lactic acid is 4.0. This may be secondary to prolonged tourniquet time. Repeat lactic acid was still little elevated at 3.4. Patient was given half liter normal saline IV. UA shows 1000 or greater glucose, 15 ketones, few wbc clumps, negative nitrites , negative leukocyte esterase. The patient is a known diabetic and is on metformin and glimepiride. CT abdomen/pelvis: CONCLUSION: 1. No acute process. 2. Stable right renal cyst. Patient made aware of all findings per she is resting comfortably. She does remember having some urinary hesitancy and slight dysuria which she'll be given a dose of IV Rocephin. She is on metformin, and because she had a CT scan with IV contrast, she was advised not to take this medication for the next 48 hours. Especially because of her slightly elevated lactate, I strongly advised her not to take this medication for 48 hours. Patient otherwise looks well. Her vital signs are normal. I do not have an explanation for her lactic acidosis. It could be secondary to metformin, however her bicarbonate is normal at 24.9. I believe she is stable for discharge home with outpatient follow-up with her primary care physician this week. She was informed on when to return to the emergency department. She verbalizes understanding and agreement with plan. Diagnosis Primary Impression: UTI (urinary tract infection) Qualified Codes: N39.0 - Urinary tract infection, site not specified Additional Impressions: Abdominal pain Qualified Codes: R10.32 - Left lower quadrant pain Hyperglycemia Referrals: Primary Care Physician 3 days Additional Instructions: Follow-up with your primary care physician this week. Return to the emergency department for worsening symptoms or any other concerns. Scripts Nitrofurantoin Monohydrate Macrocrystals (Macrobid) 100 Mg Cap 100 MG PO BID for Infection for 5 Days, CAP 0 Refills Prov: Hitesh Rey MD 04/22/17 Disposition: 01 DISCHARGE HOME Condition: Stable Hitesh Rey MD Apr 22, 2017 20:50
[2017-04-22 21:01] VITALS: RESP 18; O2SAT 96
[2017-04-22 21:11] LABS: BASOPHIL # 0.1 TH/MM3 (0-0.2); EOSINOPHIL # 0.1 TH/MM3 (0-0.4); EOSINOPHIL % 2.1 % (0.0-4.0); HEMATOCRIT 40.1 % (35.0-46.0); HEMO FLAGS DIFF FINAL; LYMPH % 42.3 % (9.0-44.0); LYMPHOCYTE # 2.7 TH/MM3 (1.0-4.8); MEAN CELL VOLUME 85.5 FL (80.0-100.0); MEAN CORPUSCULAR HEMOGLOBIN 28.3 PG (27.0-34.0); MONO % 6.1 % (0.0-8.0); NEUT % 48.5 % (16.0-70.0); PLATELET COUNT 165 TH/MM3 (150-450); RED BLOOD COUNT 4.69 MIL/MM3 (4.00-5.30); RED CELL DISTRIBUTION WIDTH 14.1 % (11.6-17.2); WHITE BLOOD COUNT 6.3 TH/MM3 (4.0-11.0)
[2017-04-22 21:20] LABS: GLUCOSE,URINE 1000 OR GREATER mg/dL (NEG); KETONE, URINE 15 mg/dL (NEG); NITRITE,URINE NEG (NEG); PH, URINE 5.5 (5.0-8.5)
[2017-04-22 21:25] LABS: BLOOD, URINE TRACE (NEG); URINE COLOR YELLOW (YELLW/STRAW)
[2017-04-22 21:26] LABS: CHLORIDE 102 MEQ/L (98-107); COMMENT (UR) CULTURE INDICATED; CULTURE IF INDICATED CULTURE INDICATED; POTASSIUM 3.8 MEQ/L (3.5-5.1); RBC, URINE 0-3 /hpf (0-3); SODIUM (NA) 136 MEQ/L (136-145); SQUAMOUS EPITHELIAL CELL URINE 0-5 /hpf (0-5)
[2017-04-22 21:30] LABS: ANION GAP 9 MEQ/L (5-15); BICARBONATE 24.9 MEQ/L (21.0-32.0); BLOOD UREA NITROGEN 16 MG/DL (7-18)
[2017-04-22 21:31] LABS: APTT (PATIENT) 25.4 SEC (24.3-30.1); PROTHROMBIN TIME - PATIENT 10.7 SEC (9.8-11.6)
[2017-04-22 21:33] LABS: ALT (GPT) 18 U/L (10-53); AST (GOT) 11 U/L (15-37); GLOMERULAR FILTRATION RATE 62 ML/MIN (>89)
[2017-04-22 21:35] LABS: TOTAL BILIRUBIN ADULT 0.5 MG/DL (0.2-1.0)
[2017-04-22 21:36] LABS: ALKALINE PHOSPHATASE 101 U/L (45-117)
[2017-04-22] MEDS ORDERED: IOHEXOL 350 MG/ML 10 ML VIAL (for RAD DIAG) IVCONTRAST ONE (22:00)
--- NOTE | 2017-04-22 22:13 | RADRPT ---
EXAM DATE/TIME: 04/22/2017 21:58 [facility] COMPARISON: CT ABDOMEN & PELVIS W CONTRAST, December 11, 2016, 11:57. INDICATIONS : Left lower quadrant pain. IV CONTRAST: 90 cc Omnipaque 350 (iohexol) IV ORAL CONTRAST: No oral contrast ingested. RADIATION DOSE: 16.43 CTDIvol (mGy) MEDICAL HISTORY : Parkinson's. Irritable bowel syndrome. Renal calculi.Hypertension. Diabetes. SURGICAL HISTORY : Tubal ligation. ENCOUNTER: Initial ACUITY: 1 day PAIN SCALE: 4/10 LOCATION: Left lower quadrant TECHNIQUE: Volumetric scanning of the abdomen and pelvis was performed. Using automated exposure control and ad justment of the mA and/or kV according to patient size, radiation dose was kept as low as reasonably achievable to obtain optimal diagnostic quality images. DICOM format image data is available electro nically for review and comparison. FINDINGS: LOWER LUNGS: The visualized lower lungs are clear. LIVER: Homogeneous density without lesion. There is no dilation of the biliary tree. No calcified gallston es. SPLEEN: Normal size without lesion. PANCREAS: Within normal limits. KIDNEYS: Normal in size and shape. There is no mass, stone or hydronephrosis. Stable right renal cyst is note d. ADRENAL GLANDS: Within normal limits. VASCULAR: There is no aortic aneurysm. BOWEL/MESENTERY: The stomach, small bowel, and colon demonstrate no acute abnormality. There is no free intraperitone al air or fluid. ABDOMINAL WALL: Within normal limits. RETROPERITONEUM: There is no lymphadenopathy. BLADDER: No wall thickening or mass. REPRODUCTIVE: Within normal limits. INGUINAL: There is no lymphadenopathy or hernia. MUSCULOSKELETAL: Within normal limits for patient age. CONCLUSION: 1. No acute process. 2. Stable right renal cyst. Joshua Shah MD on April 22, 2017 at 22:09 Board Certified Radiologist. This report was verified electronically.
[2017-04-22] MEDS ORDERED: SODIUM CHLORID 0.9% 500 ML INJ 500 ML IV ONE (23:00)
[2017-04-22] MEDS ORDERED: cefTRIAXone INJ 1,000 MG in SODIUM CHLORIDE 0.9% INJ 100 ML IV ONE (23:00)
[2017-04-22] MEDS ORDERED: MACR100C2 PO (23:01)
[2017-04-22 23:37] VITALS: BP 142/68; PULSE 85; RESP 18; O2SAT 98
== END 2017-04-23 00:32 | disposition home or self-care (01) ==
LOC: PHED 20:13
DX: N39.0 Urinary tract infection, site not specified (principal); R10.32 Left lower quadrant pain; E11.65 Type 2 diabetes mellitus with hyperglycemia; G20 Parkinson's disease; I10 Essential (primary) hypertension; Z86.718 Personal history of other venous thrombosis and embolism; Z88.0 Allergy status to penicillin
CPT/HCPCS: 74177; 80053; 81001; 83605; 85025; 85610; 85730; 87086; 96365; 99285; J0696; J7040; Q9967

== ENCOUNTER 2017-09-02 14:18 | Emergency (ER) | payer MEDICARE, MEDICAID ==
[2017-09-02] MEDS ORDERED: SODIUM CHLORIDE 0.9% FLUSH 10 ML FLUSH IVF (15:00)
[2017-09-02] MEDS: RESP: ALBUTEROL 2.5 MG/3 ML NEB (SCH) INH (15:08)
[2017-09-02] MEDS: SODIUM CHLORID 0.9% 500 ML INJ 500 ML IV (15:38)
[2017-09-02] MEDS: ALUMINUM/MAGNESIUM/SIMETH 30 ML CUP PO (15:38)
[2017-09-02] MEDS: LIDOCAINE VISCOUS 2% SOLN 15 ML UDC PO (15:38)
[2017-09-02 15:40] LABS: AUTOMATED NEUTROPHIL # 4.6 TH/MM3 (1.8-7.7); BASOPHIL % 0.8 % (0.0-2.0); EOSINOPHIL # 0.1 TH/MM3 (0-0.4); EOSINOPHIL % 1.7 % (0.0-4.0); HEMATOCRIT 41.8 % (35.0-46.0); HEMOGLOBIN 13.9 GM/DL (11.6-15.3); LYMPH % 14.8 % (9.0-44.0); LYMPHOCYTE # 0.9 TH/MM3 (1.0-4.8); MEAN CELL VOLUME 90.7 FL (80.0-100.0); MEAN CORPUSCULAR HEMOGLOBIN 30.1 PG (27.0-34.0); MEAN CORPUSCULAR HGB CONC 33.1 % (32.0-36.0); MEAN PLATELET VOLUME 9.6 FL (7.0-11.0); MONOCYTE # 0.4 TH/MM3 (0-0.9); NEUT % 76.7 % (16.0-70.0); PLATELET COUNT 133 TH/MM3 (150-450); RED BLOOD COUNT 4.61 MIL/MM3 (4.00-5.30); RED CELL DISTRIBUTION WIDTH 12.5 % (11.6-17.2)
[2017-09-02 15:48] LABS: CHLORIDE 102 MEQ/L (98-107); POTASSIUM 4.1 MEQ/L (3.5-5.1); SODIUM (NA) 134 MEQ/L (136-145)
[2017-09-02 15:51] LABS: CALCIUM 9.5 MG/DL (8.5-10.1)
[2017-09-02 15:52] LABS: ANION GAP 9 MEQ/L (5-15); BICARBONATE 23.5 MEQ/L (21.0-32.0); BLOOD UREA NITROGEN 8 MG/DL (7-18); GLUCOSE,RANDOM 196 MG/DL (74-106)
[2017-09-02 15:55] LABS: GLOMERULAR FILTRATION RATE 98 ML/MIN (>89); HEMO FLAGS DIFF FINAL
== END 2017-09-02 16:58 | disposition home or self-care (01) ==
LOC: PHED 14:18
DX: R05 Cough (principal); B34.9 Viral infection, unspecified; F32.9 Major depressive disorder, single episode, unspecified; E11.9 Type 2 diabetes mellitus without complications; I10 Essential (primary) hypertension; G20 Parkinson's disease; Z79.84 Long term (current) use of oral hypoglycemic drugs; Z79.01 Long term (current) use of anticoagulants
CPT/HCPCS: 71045; 80048; 85025; 93005; 94664; 99285

== ENCOUNTER 2018-01-30 09:51 | Emergency (ER) | payer MEDICARE, MEDICAID ==
[~2018-01-30 09:51] MED LIST changes: +ALBU6.7H INH; +BENZ100 PO; -CHOL1TAB16 PO; +FLUT50SP EACH NARE; +OSEL75 PO; -XARE15TA PO; -[UNRECOGNIZED DRUG - CODE] PO
[2018-01-30 09:56] VITALS: BP 179/96; PULSE 88; RESP 16; TEMP 98; O2SAT 97
[2018-01-30 10:25] VITALS: BP 145/69; PULSE 84; RESP 18; O2SAT 96
[2018-01-30] MEDS ORDERED: SODIUM CHLORIDE 0.9% FLUSH 10 ML FLUSH IV FLUSH PRN (10:45)
--- NOTE | 2018-01-30 11:08 | PD ---
HPI Chief Complaint: Medical Clearance Time Seen by Provider: 10:34 Travel History International Travel<30 days: No Contact w/Intl Traveler<30days: No Traveled to known affect area: No History of Present Illness HPI This patient complains of confusion. Duration 3 days. Severity is mild to moderate. She said things like misplacing her cell phone as supplements concerning her about her confusion. She does have history of Parkinson's. She does have some pain/pressure in her forehead. No injury. She does take Xarelto for history of DVT. No thunderclap onset. No fevers. No alleviating factors. No exacerbating factors. PFSH Past Medical History Hx Anticoagulant Therapy: Yes (XARELTO) Arthritis: Yes (RA) Asthma: No Autoimmune Disease: No Blood Disorders: No Anxiety: Yes Depression: Yes Heart Rhythm Problems: No Cancer: No Cardiovascular Problems: Yes High Cholesterol: No Chemotherapy: No Chest Pain: No Congestive Heart Failure: No COPD: No Cerebrovascular Accident: No Diabetes: Yes Patient Takes Glucophage: No Diminished Hearing: No Endocrine: Yes GERD: No Genitourinary: No Headaches: Yes (MIGRAINES) Hepatitis: No Hiatal Hernia: No Hypertension: Yes Immune Disorder: No Implanted Vascular Access Dvce: No Kidney Stones: Yes Medical other: No Musculoskeletal: Yes (RA, OSTEO) Neurologic: Yes (PARKINSON'S) Parkinson's Disease: Yes Psychiatric: Yes Reproductive: Yes (PROLAPSED UTERUS) Respiratory: No Migraines: Yes (HX OF MIGRAINES) Myocardial Infarction: No Pneumonia: Yes ( A CHILD) Radiation Therapy: No Seizures: No Sleep Apnea: Yes Thyroid Disease: No Ulcer: No Menopausal: Yes : 7 Para: 5 Miscarriage: 2 Tubal Ligation: Yes (25 YRS AGO) Past Surgical History Abdominal Surgery: No AICD: No Body Medical Devices: N/A Cardiac Surgery: No Ear Surgery: No Endocrine Surgery: No Eye Surgery: No Genitourinary Surgery: No Gynecologic Surgery: Yes (TUBAL LIGATION) Hysterectomy: No Joint Replacement: No Neurologic Surgery: No Oral Surgery: No Pacemaker: No Tonsillectomy: Yes ( CHILD) Other Surgery: Yes (BREAST REDUCTION 2003) Social History Alcohol Use: No Tobacco Use: No Substance Use: No Allergies-Medications (Allergen,Severity, Reaction): Coded Allergies: penicillin G (Unverified Allergy, Intermediate, RASH, 01/30/18) Reported Meds & Prescriptions Reported Meds & Active Scripts Active Fluticasone Nasal [place] 50 Mcg/Act Naspr 100 Mcg EACH NARE BID 7 Days 50 mcg/spray Tessalon Perles (Benzonatate) 100 Mg Cap 100 Mg PO TID PRN Proventil Hfa 6.7 GM Inh (Albuterol Sulfate) 90 Mcg/Act Aer 2 Puff INH Q4-6H PRN Tamiflu (Oseltamivir Phosphate) 75 Mg Cap 75 Mg PO BID 7 Days Mirapex (Pramipexole Dihydrochloride) 0.25 Mg Tab 0.125 Mg PO TID Xarelto (Rivaroxaban) 20 Mg Tab 20 Mg PO DAILY Start taking once finished with prescription for 15 mg twice daily. Reported Potassium Gluconate 595 Mg Tab 595 Mg PO DAILY Vitamin A79-Bpdyb Acid (Cobalamine Combinations) 500-400 Mcg Tab 1 Tab PO DAILY Pravastatin 10 Mg Tab 10 Mg PO DAILY Carvedilol 12.5 Mg Tab 12.5 Mg PO BID Lisinopril 5 Mg Tab 5 Mg PO DAILY Glimepiride 2 Mg Tab 2 Mg PO BIDAC Metformin (Metformin HCl) 500 Mg Tab 1,500 Mg PO HS With meals Metformin (Metformin HCl) 500 Mg Tab 1,000 Mg PO AM With meals Review of Systems General / Constitutional: No: Fever Eyes: No: Visual changes HENT: Positive: Headaches Cardiovascular: No: Chest Pain or Discomfort Respiratory: No: Shortness of Breath Gastrointestinal: No: Abdominal Pain Genitourinary: No: Dysuria Musculoskeletal: No: Pain Skin: No Rash Neurologic: Positive: Change in Mentation, No: Weakness Psychiatric: No: Depression Endocrine: No: Polydipsia Hematologic/Lymphatic: No: Easy Bruising Physical Exam Narrative GENERAL: Well-nourished, well-developed patient in no apparent distress. SKIN: Focused skin assessment reveals no rash and nodules. Skin is Warm and dry. HEAD: Atraumatic. Normocephalic. EYES: Pupils equal and round. No scleral icterus. No injection or drainage. ENT: No nasal bleeding or discharge. Mucous membranes pink and moist. NECK: Trachea midline. No JVD. No meningeal signs CARDIOVASCULAR: Regular rate and rhythm. No murmur appreciated. RESPIRATORY: No accessory muscle use. Clear to auscultation. Breath sounds equal bilaterally. GASTROINTESTINAL: Abdomen soft, non-tender, nondistended. Hepatic and splenic margins not palpable. MUSCULOSKELETAL: No obvious deformities. No clubbing. No cyanosis. No edema. NEUROLOGICAL: Awake and alert. No obvious cranial nerve deficits. Motor grossly within normal limits. Normal speech. PSYCHIATRIC: Appropriate mood and affect; insight and judgment seems pretty normal. I do not see any glaring deficit. She answers questions appropriately. Data Data Last Documented VS Vital Signs Date Time Temp Pulse Resp B/P (MAP) Pulse Ox O2 Delivery O2 Flow Rate FiO2 01/30/18 13:02 78 18 131/67 (88) 97 Room Air 01/30/18 09:56 98.0 Orders Orders Basic Metabolic Panel (Bmp) (01/30/18 10:43) Complete Blood Count With Diff (01/30/18 10:43) Thyroid Stimulating Hormone (01/30/18 10:43) Urinalysis - C+S If Indicated (01/30/18 10:43) Ct Brain W/O Iv Contrast(Rout) (01/30/18 10:43) Ecg Monitoring (01/30/18 10:43) Iv Access Insert/Monitor (01/30/18 10:43) Oximetry (01/30/18 10:43) Sodium Chloride 0.9% Flush (Ns Flush) (01/30/18 10:45) Labs Laboratory Tests Test 01/30/18 11:10 01/30/18 11:50 White Blood Count 6.1 TH/MM3 Red Blood Count 4.64 MIL/MM3 Hemoglobin 14.2 GM/DL Hematocrit 42.1 % Mean Corpuscular Volume 90.8 FL Mean Corpuscular Hemoglobin 30.6 PG Mean Corpuscular Hemoglobin Concent 33.6 % Red Cell Distribution Width 13.5 % Platelet Count 168 TH/MM3 Mean Platelet Volume 9.3 FL Neutrophils (%) (Auto) 63.1 % Lymphocytes (%) (Auto) 27.4 % Monocytes (%) (Auto) 7.3 % Eosinophils (%) (Auto) 1.4 % Basophils (%) (Auto) 0.8 % Neutrophils # (Auto) 3.8 TH/MM3 Lymphocytes # (Auto) 1.7 TH/MM3 Monocytes # (Auto) 0.4 TH/MM3 Eosinophils # (Auto) 0.1 TH/MM3 Basophils # (Auto) 0.0 TH/MM3 CBC Comment DIFF FINAL Differential Comment Blood Urea Nitrogen 15 MG/DL Creatinine 0.80 MG/DL Random Glucose 194 MG/DL Calcium Level 9.5 MG/DL Sodium Level 141 MEQ/L Potassium Level 3.8 MEQ/L Chloride Level 109 MEQ/L Carbon Dioxide Level 19.1 MEQ/L Anion Gap 13 MEQ/L Estimat Glomerular Filtration Rate 70 ML/MIN Thyroid Stimulating Hormone 3rd Gen 1.160 uIU/ML Urine Color YELLOW Urine Turbidity CLEAR Urine pH 5.0 Urine Specific [place] 1.030 Urine Protein NEG mg/dL Urine Glucose (UA) >=500 mg/dL Urine Ketones TRACE mg/dL Urine Occult Blood SMALL Urine Nitrite NEG Urine Bilirubin NEG Urine Urobilinogen LESS THAN 2 mg/dL Urine Leukocyte Esterase NEG Urine RBC LESS THAN 1 /hpf Urine WBC 1 /hpf Urine Squamous Epithelial Cells 1 /hpf Microscopic Urinalysis Comment CATH-CULT NOT IND MDM Medical Decision Making Medical Screen Exam Complete: Yes Emergency Medical Condition: Yes Medical Record Reviewed: Yes Differential Diagnosis Intracranial hemorrhage, Parkinson's, electrolyte abnormality Narrative Course I have reviewed the patient's electronic medical record. Extensive altered mental status workup was conducted. Brain CT negative for acute problem. Labs reasonably normal and urine clean. On recheck she seems fine. She is up dressed walking in the room and wants to go home. I do not see any significant mental status issue here. She sounds lucid and stable for outpatient follow-up. Diagnosis Primary Impression: Confusion Additional Impressions: Parkinsons disease DVT (deep venous thrombosis) Qualified Codes: I82.409 - Acute embolism and thrombosis of unspecified deep veins of unspecified lower extremity Additional Instructions: The patient was advised to follow up with their physician and return if they worsen. Med/Other Pt SpecificInfo: Other Disposition: 01 DISCHARGE HOME Condition: Stable Rinku Lockwood MD Jan 30, 2018 11:07
[2018-01-30 11:18] LABS: AUTOMATED NEUTROPHIL # 3.8 TH/MM3 (1.8-7.7); BASOPHIL % 0.8 % (0.0-2.0); EOSINOPHIL # 0.1 TH/MM3 (0-0.4); EOSINOPHIL % 1.4 % (0.0-4.0); HEMATOCRIT 42.1 % (35.0-46.0); HEMOGLOBIN 14.2 GM/DL (11.6-15.3); LYMPH % 27.4 % (9.0-44.0); LYMPHOCYTE # 1.7 TH/MM3 (1.0-4.8); MEAN CELL VOLUME 90.8 FL (80.0-100.0); MEAN CORPUSCULAR HEMOGLOBIN 30.6 PG (27.0-34.0); MEAN CORPUSCULAR HGB CONC 33.6 % (32.0-36.0); MEAN PLATELET VOLUME 9.3 FL (7.0-11.0); MONO % 7.3 % (0.0-8.0); MONOCYTE # 0.4 TH/MM3 (0-0.9); NEUT % 63.1 % (16.0-70.0); PLATELET COUNT 168 TH/MM3 (150-450); RED BLOOD COUNT 4.64 MIL/MM3 (4.00-5.30); RED CELL DISTRIBUTION WIDTH 13.5 % (11.6-17.2); WHITE BLOOD COUNT 6.1 TH/MM3 (4.0-11.0)
[2018-01-30 11:34] LABS: BICARBONATE 19.1 MEQ/L (21.0-32.0); CALCIUM 9.5 MG/DL (8.5-10.1); CREATININE 0.8 MG/DL (0.50-1.00)
[2018-01-30 11:38] VITALS: O2SAT 98
--- NOTE | 2018-01-30 11:52 | RADRPT ---
EXAM DATE: 01/30/2018 11:26 AM EDT AGE/SEX: 72 years / Female INDICATIONS: Altered mental status. Lightheaded and dizzy today. CLINICAL DATA: This is the patient's initial encounter. Patient reports that signs and symptoms have been present for 1 day and indicates a pain score of 0/10. MEDICAL/SURGICAL HISTORY: Deep venous thrombosis. Diabetes. Hypertension. Parkinson's. None. RADIATION DOSE: 35.40 CTDI (mGy) COMPARISON: [facility] – [place], [place] BRAIN W/O CONTRAST, 08/11/2015. . TECHNIQUE: CT of the head without contrast. Using automated exposure control and adjustment of the mA and/or kV according to patient size, radiation dose was kept as low as reasonably achievable to ob tain optimal diagnostic quality images. DICOM format image data is available electronically for revi ew and comparison. FINDINGS: Cerebrum: There is mild generalized atrophy and ventricles are normal given the degree of atrophy. M ild periventricular white matter change is present. No midline shift, mass lesion, hemorrhage or acu te infarction. No extraaxial fluid collections are seen. Posterior Fossa: The cerebellum and brainstem demonstrate no acute abnormality. The 4th ventricle is midline. The cerebellopontine angle is within normal limits. Extracranial: The visualized sinuses are clear. Skull: The calvaria is intact. No skull fracture. CONCLUSION: 1. No acute intracranial abnormality is identified. 2. Chronic findings include mild generalized atrophy and mild chronic periventricular white matter c hange. Electronically signed by: Yoel Bryant MD 01/30/2018 11:50 AM EDT
[2018-01-30 12:18] LABS: BILIRUBIN, URINE NEG (NEG); BLOOD, URINE SMALL (NEG); GLUCOSE,URINE >=500 mg/dL (NEG); KETONE, URINE TRACE mg/dL (NEG); NITRITE,URINE NEG (NEG); SQUAMOUS EPITHELIAL CELL URINE 1 /hpf (0-5); URINE COLOR YELLOW (YELLW/STRAW); URINE LEUKOCYTE ESTERASE NEG (NEG)
[2018-01-30 13:02] VITALS: BP 131/67; PULSE 78; RESP 18; O2SAT 97
[2018-01-30 15:23] VITALS: BP 132/70
== END 2018-01-30 15:23 | disposition home or self-care (01) ==
LOC: NEPC 09:51
DX: R41.0 Disorientation, unspecified (principal); G20 Parkinson's disease; I82.409 Acute embolism and thrombosis of unspecified deep veins of unspecified lower extremity; M06.9 Rheumatoid arthritis, unspecified; F41.9 Anxiety disorder, unspecified; F32.9 Major depressive disorder, single episode, unspecified; E11.9 Type 2 diabetes mellitus without complications; I10 Essential (primary) hypertension; G47.30 Sleep apnea, unspecified; Z87.442 Personal history of urinary calculi; Z88.0 Allergy status to penicillin; Z79.899 Other long term (current) drug therapy
CPT/HCPCS: 70450; 80048; 81001; 84443; 85025